=== PATIENT | male | born 1970 | race Caucasian/White ===

== ENCOUNTER 2022-05-14 16:20 | Emergency (ER) | payer MEDICAID ==
[~2022-05-14] VITALS: Ht 177.8 cm; Wt 84.0 kg
[2022-05-14 16:33] VITALS: BP 141/92
[2022-05-14] MEDS ORDERED: MECLIZINE 25MG TABLET PO ONE (21:00)
[2022-05-14] MEDS ORDERED: MECL-159 MT ×2 (23:19)
[2022-05-15] MEDS ORDERED: MECL-159 MT (19:11)
== END 2022-05-14 23:36 | disposition home or self-care (01) ==
LOC: ER 16:20
DX: R42 Dizziness and giddiness (principal)
CPT/HCPCS: 93005; 99283; J8597